=== PATIENT | female | born 1950 | race African-American/Black ===

== ENCOUNTER → 2016-05-14 | Outpatient (CLI) | payer MEDICARE, BC ==
[~2016-05-14] MED LIST: CALCIUM 600600 M2 PO; MASON NATURAL600 MG; TENORMIN 2525 MG/TAB PO
== END ==
LOC: COL.VAS 05-10 08:00
DX: I10 Essential (primary) hypertension (principal)

== ENCOUNTER 2017-07-16 22:06 | Emergency (ER) | payer MEDICARE, BC ==
[~2017-07-16] VITALS: Ht 160 cm; Wt 60.9 kg
[2017-07-16 22:21] VITALS: BP 141/65; TEMP 97.6
[2017-07-16 23:20] LABS: BASO % 0.6 % (0.0-2.0); EOS # 0.1 (0.0-0.7); EOS % 2.2 % (0-4.0); GRAN # 2.5 (1.4-6.5); HEMATOCRIT 40.9 % (37.0-47.0); HEMOGLOBIN 12.9 g/dl (12.5-16.0); LYMPH # 0.6 (1.2-3.4); LYMPH % 15.7 % (20.0-51.0); MEAN CELL VOLUME 84 fl (80.0-100.0); MEAN CORPUSCULAR HEMOGLOBIN 27 pg (27.0-31.0); MEAN CORPUSCULAR HGB CONC 32 g/dl (33.0-37.0); MEAN PLATELET VOLUME 11.2 fl (7.4-10.4); MONO # 0.4 (0.1-0.6); MONO % 11.2 % (1.7-9.3); PLATELET COUNT 210 K/mm3 (130-400); RED BLOOD COUNT 4.85 M/mm3 (4.10-5.30); REDCELL DISTRIBUTION WIDTH-CV 12.2 % (11.5-14.5)
[2017-07-16 23:31] LABS: ALANINE AMINOTRANSFERASE 28 U/L (9-52); ALBUMIN 4.2 gm/dL (3.5-5.0); ALKALINE PHOSPHATASE 90 U/L (50-136); ANION GAP 10 mmol/L (7-16); AST,SGOT 20 U/L (15-37); BILIRUBIN,TOTAL 0.5 mg/dL (0.0-1.0); BLOOD UREA NITROGEN 31 mg/dL (7-17); CALCIUM 9.5 mg/dL (8.4-10.2); CARBON DIOXIDE 23 mmol/L (22-30); CHLORIDE 102 mmol/L (98-107); CREATININE, serum 1.02 mg/dL (0.52-1.25); GLUCOSE 155 mg/dL (74-106); POTASSIUM 3.9 mmol/L (3.4-5.0); SODIUM 135 mmol/L (137-145); TOTAL PROTEIN 8.4 gm/dL (6.4-8.2)
[2017-07-16] MEDS ORDERED: TOPROL XL100 MG PO (23:36)
[2017-07-16] MEDS ORDERED: NORVASC 10MG10 MG PO (23:36)
[2017-07-16] MEDS ORDERED: COZAAR 25MG25 MG/TAB PO (23:36)
[2017-07-16] MEDS ORDERED: ALDACTAZIDE 251 TAB PO (23:37)
[2017-07-16 23:45] LABS: TROPONIN-I < 0.012 ng/mL (0.000-0.034)
[2017-07-17 00:16] VITALS: PULSE 52
== END 2017-07-17 00:15 | disposition home or self-care (01) ==
LOC: COL.ER 22:06
PROVIDERS: Emergency Medicine
DX: R00.2 Palpitations (principal); I10 Essential (primary) hypertension